=== PATIENT | female | born 1985 | race Caucasian/White ===

== ENCOUNTER 2017-05-13 11:44 | Emergency (ER) | payer MEDICAID ==
[2017-05-13 11:52] VITALS: BP 121/84
[2017-05-13 12:08] LABS: BILIRUBIN,URINE NEGATIVE (NEGATIVE); PH,URINE 6.5 PH (5.0-7.5)
[2017-05-13 12:10] LABS: HCG UR QUAL NEGATIVE; UA w/ MICROSCOPIC CHARGE YES
--- NOTE | 2017-05-13 12:11 | ED Physician Documentation ---
History of Present Illness - Stated complaint Stated Complaint: FEMALE - Chief complaint Chief Complaint: General - History obtained from History obtained from: Patient - History of Present Illness Timing: Other (31-year-old woman without history of UTIs presents 2 weeks foul- smelling urine and suprapubic pressure without dysuria or frequency. It is associated with mild right flank pain but no chills or fevers. No nausea. Slim possibility of .) Review of Systems Constitutional: denies: Fever, Chills Cardiac: reports: Reviewed and negative Respiratory: reports: Reviewed and negative PD PAST MEDICAL HISTORY - Past Medical History Past Medical History: No - Past Surgical History Past Surgical History: No - Present Medications Home Medications: Ambulatory Orders Medication Instructions Recorded Confirmed Sulfamethoxazole/Trimethoprim 1 each PO BID 5 Days tablet 05/13/17 [Sulfamethoxazole-Tmp Ds Tablet] - Allergies Allergies/Adverse Reactions: Allergies Allergy/AdvReac Type Severity Reaction Status Date / Time No Known Drug Allergies Allergy Verified 05/13/17 11:52 - Social History Does the pt smoke?: Yes Smoking Status: Current every day smoker Does the pt drink ETOH?: No Does the pt have substance abuse?: No - Immunizations Immunizations are current?: Yes Immunizations: TDAP >10years/unknown - POLST Patient has POLST: No PD ED PE NORMAL - Vitals Vital signs reviewed: Yes - General General: Alert and oriented X 3, No acute distress - Abdomen Abdomen: Soft, Non tender - Back Back: Other (Very mild right flank tenderness) - Neuro Neuro: Alert and oriented X 3, Normal speech - Psych Psych: Normal mood, Normal affect Results - Vitals Vitals: Vital Signs - 24 hr 05/13/17 11:49 Temperature 36.9 C Heart Rate 93 Respiratory 16 Rate Blood Pressure 121/84 H O2 Saturation 98 Oxygen O2 Source Room air - Labs Labs: Laboratory Tests 05/13/17 12:00 Urine Color YELLOW Urine Clarity CLEAR Urine pH 6.5 Ur Specific [place] <=1.005 Urine Protein NEGATIVE Urine Glucose (UA) NEGATIVE Urine Ketones NEGATIVE Urine Occult Blood SMALL H Urine Nitrite NEGATIVE Urine Bilirubin NEGATIVE Urine Urobilinogen 0.2 (NORMAL) Ur Leukocyte Esterase NEGATIVE Urine RBC 0-5 Urine WBC 0-3 Ur Squamous Epith Cells FEW Squamous Urine Bacteria Few Ur Microscopic Review INDICATED Urine Culture Comments NOT INDICATED Urine HCG, Qual NEGATIVE PD MEDICAL DECISION MAKING - ED course ED course: She has signs and symptoms very mild pyelonephritis, urinalysis positive for bacteriuria and blood, it is soft call but given her symptoms and exam findings it is consistent. Departure - Departure Disposition: 01 Home, Self Care Clinical Impression: Pyelonephritis Condition: Good Record reviewed to determine appropriate education?: Yes Instructions: Pyelonephritis Dc Prescriptions: Sulfamethoxazole/Trimethoprim [Sulfamethoxazole-Tmp Ds Tablet] 1 each PO BID 5 Days tablet Comments: Call your doctor to arrange a follow-up appointment, make the next available appointment. In the interim, return anytime if worse or if new symptoms develop. Your blood pressure was elevated today on check into the emergency department. This does not mean that you have hypertension, it is a common phenomenon to come to the emergency department and have elevated blood pressure. I recommend that you see your primary care physician within the week to have it rechecked when you are feeling better.
[2017-05-13 12:16] LABS: WBC,URINE 0-3 /HPF (0-5)
[2017-05-13 12:17] LABS: UR CULTURE IF IND NOT INDICATED
[2017-05-13] MEDS ORDERED: SULFAMETH/TRIMETH DS 800/160 MG TABLET PO STA (12:23)
[2017-05-13] MEDS ORDERED: SULFAMETH/TRIMETH DS 800/160 MG TABLET PO ONE (12:33)
== END 2017-05-13 12:33 | disposition home or self-care (01) ==
LOC: ED 11:44
DX: N12 Tubulo-interstitial nephritis, not specified as acute or chronic (principal); R82.71 Bacteriuria; R03.0 Elevated blood-pressure reading, without diagnosis of hypertension; F17.200 Nicotine dependence, unspecified, uncomplicated
CPT/HCPCS: 81001; 81025; 99283; A9270; 81003; 87086

== ENCOUNTER 2017-05-29 19:38 | Emergency (ER) | payer MEDICAID ==
[2017-05-29 19:44] VITALS: BP 131/89
--- NOTE | 2017-05-29 19:59 | ED Physician Documentation ---
History of Present Illness - Stated complaint Stated Complaint: TOOTH PX - Chief complaint Chief Complaint: Heent - History obtained from History obtained from: Patient, Family - History of Present Illness Timing: How many weeks ago (1) Pain level max: 8 Pain level now: 8 Improved by: nothing Worsened by: eating, drinking, smoking - Additonal information Additional information: Patient is a 31-year-old female who presents to the emergency department with left upper molar and left lower dental pain. This been ongoing for the past week. She has been taking clindamycin and Motrin without relief. Has an appointment with her dentist on . She has not had any fevers. No facial swelling. She is concerned the infection is worsening. Review of Systems Constitutional: denies: Fever, Chills Respiratory: denies: Cough GI: denies: Vomiting : denies: Now EGA Skin: denies: Rash PD PAST MEDICAL HISTORY - Past Medical History Past Medical History: No - Past Surgical History Past Surgical History: No - Present Medications Home Medications: Ambulatory Orders Medication Instructions Recorded Confirmed Cephalexin [Keflex] 500 mg PO Q6H #40 capsule 05/29/17 Clindamycin HCl [Clindamycin 300MG 1 tab PO DAILY 05/29/17 05/29/17 CAP] Hydrocodone/Acetaminophen 1 - 2 each PO Q6H PRN #14 tablet 05/29/17 [Hydrocodon-Acetaminophen 5-325] - Allergies Allergies/Adverse Reactions: Allergies Allergy/AdvReac Type Severity Reaction Status Date / Time No Known Drug Allergies Allergy Verified 05/29/17 19:44 - Social History Does the pt smoke?: Yes Smoking Status: Current every day smoker Does the pt drink ETOH?: No Does the pt have substance abuse?: No - Immunizations Immunizations are current?: Yes Immunizations: TDAP >10years/unknown - POLST Patient has POLST: No PD ED PE NORMAL - Vitals Vital signs reviewed: Yes - General General: Alert and oriented X 3, No acute distress, Well developed/nourished - HEENT HEENT: Moist mucous membranes - Neck Neck: Supple, no meningeal sign, No adenopathy - Cardiac Cardiac: RRR, No murmur - Respiratory Respiratory: No respiratory distress, Clear bilaterally - Derm Derm: Warm and dry - Neuro Neuro: Alert and oriented X 3 PD ED PE EXPANDED - HEENT HEENT Visual: 1 - tenderness (diffuse dental decay, multiple missing teeth. no gingival swelling or abscess.) 2 - tenderness (diffuse dental decay, multiple missing teeth. no gingival swelling or abscess.) Results - Vitals Vitals: Vital Signs - 24 hr 05/29/17 19:39 Temperature 36.2 C L Heart Rate 100 Respiratory 18 Rate Blood Pressure 131/89 H O2 Saturation 100 Oxygen O2 Source Room air PD MEDICAL DECISION MAKING - ED course Complexity details: reviewed old records, considered differential, d/w patient, d/w family ED course: Patient is a 31-year-old female who presents to the emergency department with diffuse dental decay on the left upper and lower jaw. Multiple fractured teeth that were packed with cavit. Will place her on antibiotics and pain medication for home. She does not have any drainable abscess. No facial cellulitis. No trismus. No Herman's angina. Patient counseled regarding signs and symptoms for which I believe and urgent re-evaluation would be necessary. Patient with good understanding of and agreement to plan and is comfortable going home at this time This document was made in part using voice recognition software. While efforts are made to proofread this document, sound alike and grammatical errors may occur. Departure - Departure Disposition: 01 Home, Self Care Clinical Impression: Dental caries Condition: Good Instructions: ED Tooth Pain, ED Cavity Dental Follow-Up: your,dentist as soon as possible [Other] Prescriptions: Cephalexin [Keflex] 500 mg PO Q6H #40 capsule Hydrocodone/Acetaminophen [Hydrocodon-Acetaminophen 5-325] 1 - 2 each PO Q6H PRN #14 tablet PRN Reason: pain Comments: Return if you worsen. Take all antibiotics until gone. Stop the clindamycin. Do not drink alcohol or drive while on narcotic pain medicine. Note that many narcotic pain relievers also contain tylenol/acetaminophen. Please ensure that your total dose of acetaminophen from all sources does not exceed 3 grams (3000mg) per day. You may constipated on this medication, take a stool softener such as "Colace" twice a day while you are on it. Also recommend a [id number]-[id number]-bloxawd laxative such as senna or MiraLAX any day that you do not have a bowel movement. If you received narcotic pain medication in the emergency department, do not drive or operate machinery for the next 24 hours. Discharge Date/Time: 05/29/17 20:01
== END 2017-05-29 20:01 | disposition home or self-care (01) ==
LOC: ED 19:38
DX: K02.9 Dental caries, unspecified (principal); F17.200 Nicotine dependence, unspecified, uncomplicated
CPT/HCPCS: 99283

== ENCOUNTER 2020-11-29 23:13 | Emergency (ER) | payer MEDICAID ==
[2020-11-29] MEDS ORDERED: ACETAMINOPHEN 325 MG TABLET PO STA (23:45)
[2020-11-30 00:07] LABS: BILIRUBIN,URINE NEGATIVE (NEGATIVE); GLUCOSE, URINE (UA) NEGATIVE (NEGATIVE); KETONES,URINE (UA) NEGATIVE (NEGATIVE); LEUKOCYTE ESTERASE, URINE NEGATIVE (NEGATIVE); NITRITE,URINE NEGATIVE (NEGATIVE); OCCULT BLOOD,URINE MODERATE (NEGATIVE); PROTEIN,URINE NEGATIVE (NEGATIVE); UROBILINOGEN,URINE 0.2 (NORMAL) E.U./dL (NORMAL)
[2020-11-30 00:09] LABS: CLARITY,URINE CLEAR (CLEAR); HCG UR QUAL POSITIVE
[2020-11-30 00:14] LABS: RBC,URINE 0-5 /HPF (0-5); WBC,URINE 0-3 /HPF (0-5)
[2020-11-30 00:15] LABS: BACTERIA,URINE Rare /HPF (None Seen); CRYSTALS,URINE 26-50 Ca Oxalate /LPF; SQUAMOUS EPITHELIAL CELL,UR RARE Squamous (<= Few)
--- NOTE | 2020-11-30 00:29 | ED Physician Documentation ---
History of Present Illness - Stated complaint Stated Complaint: HEAD PX, EAR ISSUES - Chief complaint Chief Complaint: Neuro - History obtained from History obtained from: Patient - Additonal information Additional information: 35-year-old woman, G6, P4, currently with LMP sometime in May, without care up to this point, presents with multiple complaints. Patient states that she had vaginal spotting 2 days ago. She also had 3 episodes of intermittent severe headache that she says were generalized, sharp, resolved on their own, were associated with severe anxiety. She does take buspirone and methadone for anxiety, depression, and to treat prior substance abuse issues. Patient denies alcohol, substance use. She [facility] for evaluation for possible . Finally, the patient is complaining of chronic buzzing in the ears, worse on the left side. She inserts Q tips in her ears regularly. Review of Systems Ten Systems: 10 systems reviewed and negative Constitutional: denies: Fever, Chills Eyes: reports: Other (double vision) Cardiac: denies: Chest pain / pressure Respiratory: denies: Dyspnea GI: reports: Nausea : reports: Vaginal bleeding Neurologic: reports: Headache Psychiatric: reports: Depressed, Anxiety, Other (denies SI/HI/AVH. feels safe at home) PD PAST MEDICAL HISTORY - Past Medical History Past Medical History: Yes Psych: Depression - Past Surgical History Past Surgical History: No - Present Medications Home Medications: Ambulatory Orders Medication Instructions Recorded Confirmed Escitalopram [Lexapro] 20 mg PO DAILY 11/29/20 11/29/20 Mirtazapine [Remeron] 15 mg PO DAILY 11/29/20 11/29/20 - Allergies Allergies/Adverse Reactions: Allergies Allergy/AdvReac Type Severity Reaction Status Date / Time No Known Drug Allergies Allergy Verified 05/29/17 19:44 - Social History Does the pt smoke?: Yes Smoking Status: Current every day smoker Does the pt drink ETOH?: No Does the pt have substance abuse?: No - Immunizations Immunizations are current?: Yes Immunizations: TDAP >10years/unknown - POLST Patient has POLST: No PD ED PE NORMAL - Vitals Vital signs reviewed: Yes - General General: Alert and oriented X 3, Well developed/nourished, Other (tearful) - HEENT HEENT: Atraumatic, PERRL, EOMI, Other (BL TMs with scar tissue. L TM partial rupture) - Neck Neck: Supple, no meningeal sign - Cardiac Cardiac: RRR - Respiratory Respiratory: No respiratory distress, Clear bilaterally - Abdomen Abdomen: Non tender, Non distended, Other (gravid abdomen) - Derm Derm: Normal color, Warm and dry - Extremities Extremities: No deformity, No edema - Neuro Neuro: Alert and oriented X 3, measurement technician 2-12 intact, No motor deficit, No sensory deficit, Normal speech - Psych Psych: Other (teaful affect, anxious mood) Results - Vitals Vitals: Vital Signs - 24 hr 11/29/20 11/30/20 11/30/20 23:15 00:58 01:11 Temperature 36.6 C Heart Rate 105 H 94 82 Respiratory 16 13 15 Rate Blood Pressure 125/84 H 133/77 H O2 Saturation 98 98 96 Oxygen O2 Source Room air - Labs Labs: Laboratory Tests 11/29/20 11/29/20 11/29/20 23:47 23:47 23:47 WBC RBC Hgb Hct MCV MCH MCHC RDW Plt Count MPV Neut # (Auto) Lymph # (Auto) Sully # (Auto) Eos # (Auto) Baso # (Auto) Absolute Nucleated RBC Nucleated RBC % Sodium Potassium Chloride Carbon Dioxide Anion Gap BUN Creatinine Estimated GFR (MDRD) Glucose Calcium Total Bilirubin AST ALT Alkaline Phosphatase Total Protein Albumin Globulin Albumin/Globulin Ratio Lipase TSH HCG, Quant Urine Color YELLOW Urine Clarity CLEAR Urine pH 6.0 Ur Specific [place] >=1.030 H Urine Protein NEGATIVE Urine Glucose (UA) NEGATIVE Urine Ketones NEGATIVE Urine Occult Blood MODERATE H Urine Nitrite NEGATIVE Urine Bilirubin NEGATIVE Urine Urobilinogen 0.2 (NORMAL) Ur Leukocyte Esterase NEGATIVE Urine RBC 0-5 Urine WBC 0-3 Ur Squamous Epith Cells RARE Squamous Urine Crystals 26-50 Ca Oxalate Urine Bacteria Rare Urine Culture Comments NOT INDICATED Urine HCG, Qual POSITIVE Urine Opiates Screen NEGATIVE Ur Oxycodone Screen NEGATIVE Urine Methadone Screen POSITIVE H Ur Propoxyphene Screen NEGATIVE Ur Barbiturates Screen NEGATIVE Ur Tricyclics Screen NEGATIVE Ur Phencyclidine Scrn NEGATIVE Ur Amphetamine Screen POSITIVE H U Methamphetamines Scrn POSITIVE H U Benzodiazepines Scrn POSITIVE H Urine Cocaine Screen NEGATIVE U Cannabinoids Screen NEGATIVE Ethyl Alcohol Blood Type Antibody Screen 11/30/20 11/30/20 11/30/20 00:40 00:40 00:40 WBC 8.5 RBC 3.74 L Hgb 11.1 L Hct 32.6 L MCV 87.2 MCH 29.7 MCHC 34.0 RDW 12.8 Plt Count 245 MPV 10.0 Neut # (Auto) 5.0 Lymph # (Auto) 2.5 Sully # (Auto) 0.6 Eos # (Auto) 0.4 Baso # (Auto) 0.1 Absolute Nucleated RBC 0.00 Nucleated RBC % 0.0 Sodium 135 Potassium 3.7 Chloride 102 Carbon Dioxide 23 Anion Gap 10.0 BUN 13 Creatinine 0.6 Estimated GFR (MDRD) 113 Glucose 122 H Calcium 9.2 Total Bilirubin 0.5 AST 20 ALT 22 Alkaline Phosphatase 49 Total Protein 6.6 L Albumin 3.8 Globulin 2.8 Albumin/Globulin Ratio 1.4 Lipase 22 TSH 0.77 HCG, Quant Urine Color Urine Clarity Urine pH Ur Specific [place] Urine Protein Urine Glucose (UA) Urine Ketones Urine Occult Blood Urine Nitrite Urine Bilirubin Urine Urobilinogen Ur Leukocyte Esterase Urine RBC Urine WBC Ur Squamous Epith Cells Urine Crystals Urine Bacteria Urine Culture Comments Urine HCG, Qual Urine Opiates Screen Ur Oxycodone Screen Urine Methadone Screen Ur Propoxyphene Screen Ur Barbiturates Screen Ur Tricyclics Screen Ur Phencyclidine Scrn Ur Amphetamine Screen U Methamphetamines Scrn U Benzodiazepines Scrn Urine Cocaine Screen U Cannabinoids Screen Ethyl Alcohol < 5.0 Blood Type Antibody Screen 11/30/20 11/30/20 00:40 00:40 WBC RBC Hgb Hct MCV MCH MCHC RDW Plt Count MPV Neut # (Auto) Lymph # (Auto) [place] # (Auto) Eos # (Auto) Baso # (Auto) Absolute Nucleated RBC Nucleated RBC % Sodium Potassium Chloride Carbon Dioxide Anion Gap BUN Creatinine Estimated GFR (MDRD) Glucose Calcium Total Bilirubin AST ALT Alkaline Phosphatase Total Protein Albumin Globulin Albumin/Globulin Ratio Lipase TSH HCG, Quant 87268.00 Urine Color Urine Clarity Urine pH Ur Specific [place] Urine Protein Urine Glucose (UA) Urine Ketones Urine Occult Blood Urine Nitrite Urine Bilirubin Urine Urobilinogen Ur Leukocyte Esterase Urine RBC Urine WBC Ur Squamous Epith Cells Urine Crystals Urine Bacteria Urine Culture Comments Urine HCG, Qual Urine Opiates Screen Ur Oxycodone Screen Urine Methadone Screen Ur Propoxyphene Screen Ur Barbiturates Screen Ur Tricyclics Screen Ur Phencyclidine Scrn Ur Amphetamine Screen U Methamphetamines Scrn U Benzodiazepines Scrn Urine Cocaine Screen U Cannabinoids Screen Ethyl Alcohol Blood Type O POSITIVE Antibody Screen NEGATIVE PD MEDICAL DECISION MAKING - ED course ED course: 35-year-old woman presents with multiple medical complaints, the most concerning of which is that she is likely five months with no care, reporting DANIELS, nausea, double vision, and vaginal spotting yesterday. Will obtain lab work and ultrasound to evaluate further. Patient eloped prior to my discussing her results. I called her and Let her know her blood type, her results of her ultrasound, and the fact that she is anemic. Encouraged her to follow[facility]up with [facility] this [facility] and to return here as a safe place if she would like help with addiction treatment. She states she is seeking counseling to stop using meth. return precautions given. Departure - Departure Disposition: ED [place] Clinical Impression: Threatened miscarriage, Headache, Methamphetamine abuse Discharge Date/Time: 11/30/20 02:10
[2020-11-30 00:39] LABS: MUDS CUTOFF CONCENTRATIONS CUTOFF CONC BELOW:
[2020-11-30 00:46] LABS: BASOPHILS # (AUTO) 0.1 10^3/uL (0.0-0.1); BASOPHILS % (AUTO) 0.7 %; EOSINOPHILS # (AUTO) 0.4 10^3/uL (0.0-0.7); EOSINOPHILS % (AUTO) 4.3 %; HCT - HEMATOCRIT 32.6 % (37.0-47.0); HGB - HEMOGLOBIN 11.1 g/dL (12.0-16.0); LYMPHOCYTES # (AUTO) 2.5 10^3/uL (1.5-3.5); MEAN CORPUSCULAR HEMOGLOBIN 29.7 pg (27.0-31.0); MEAN CORPUSCULAR VOLUME 87.2 fL (81.0-99.0); MONOCYTES # (AUTO) 0.6 10^3/uL (0.0-1.0); MONOCYTES % (AUTO) 7.4 %; NEUTROPHILS % (AUTO) 58.4 %; PLT - PLATELET COUNT 245 10^3/uL (130-450); RED BLOOD COUNT 3.74 10^6/uL (4.20-5.40); RED CELL DISTRIBUTION WIDTH 12.8 % (12.0-15.0); WHITE BLOOD COUNT 8.5 x10^3/uL (4.8-10.8)
[2020-11-30 00:51] LABS: AMPHETAMINE SCREEN,URINE POSITIVE (NEGATIVE); BARBITURATE SCREEN,UR NEGATIVE (NEGATIVE); BENZODIAZEPINES SCREEN, URINE POSITIVE (NEGATIVE); COCAINE SCREEN URINE NEGATIVE (NEGATIVE); METHADONE SCREEN, URINE POSITIVE (NEGATIVE); METHAMPHETAMINES SCREEN, URINE POSITIVE (NEGATIVE); OPIATE SCREEN, URINE NEGATIVE (NEGATIVE); OXYCODONE SCREEN, URINE NEGATIVE (NEGATIVE); PROPOXYPHENE SCREEN, URINE NEGATIVE (NEGATIVE); THC CANNABINOID SCREEN, URINE NEGATIVE (NEGATIVE); TRICYCLIC ANTIDEPRESSANT,URINE NEGATIVE (NEGATIVE)
[2020-11-30 00:59] LABS: ALBUMIN 3.8 g/dL (3.2-5.5); ALBUMIN/GLOBULIN RATIO 1.4 (1.0-2.2); ALKALINE PHOSPHATASE 49 IU/L (42-121); ALT ALANINE AMINOTRANSFERASE 22 IU/L (10-60); AST ASPARTATE AMINOTRANSFERASE 20 IU/L (10-42); BILIRUBIN,TOTAL 0.5 mg/dL (0.2-1.0); BUN - BLOOD UREA NITROGEN 13 mg/dL (6-20); CALCIUM 9.2 mg/dL (8.5-10.3); CARBON DIOXIDE - CO2 23 mmol/L (21-32); CHLORIDE 102 mmol/L (101-111); CREATININE 0.6 mg/dL (0.4-1.0); ETOH - ETHANOL < 5.0 mg/dL; GFR - MDRD 113 (>89); GLUCOSE 122 mg/dL (70-100); LIPASE 22 U/L (22-51); POTASSIUM 3.7 mmol/L (3.5-5.0); SODIUM 135 mmol/L (135-145); TOTAL PROTEIN 6.6 g/dL (6.7-8.2)
[2020-11-30 01:00] VITALS: BP 133/77
--- NOTE | 2020-11-30 08:44 | Ultrasound Report ---
PROCEDURE: OB First Trimester INDICATIONS: LMP MAY, NO CARE,SPOTTING OUTSIDE/PRIOR DATING DATA: Last menstrual period (LMP): Not available. LMP-based estimated date of delivery (CORRIE): Not available. First dating scan (date and location): This study, 11/30/2020. Estimated date of delivery (CORRIE) from first dating scan: 06/14/2021, +/- 5 days.. The below data below was generated using the current CORRIE of 06/14/2021. TECHNIQUE: Real-time scanning was performed of the fetus and maternal pelvic organs, with image documentation. COMPARISON: None. FINDINGS: There is a single living intrauterine gestation with heart rate 144 bpm, and a crown-rump length of 5.3 cm, which correlates with a gestational age of 12 weeks 0 days, +/- 5 days. 2 small foci of subchorionic hemorrhage are identified, the first on the left measuring 2.1 x 0.8 x 1 .6 cm and the second on the right measuring 1.2 x 0.5 x 0.6 cm. Measurement variability in dating: +/- 4 weeks by LMP, +/- 7 days by mean sac diameter (use before 6 weeks gestation if crown-rump length not able to be measured), +/- 5 days by crown-rump length (6-12 weeks gestation). Maternal organs: Ovaries are normal considering gestational status with what appears to be a small c orpus luteum cyst at the right ovary.. IMPRESSION: Single living intrauterine gestation with current estimated gestational age from crown-rump length of 12 weeks 0 days, with delivery date projected to be centered on 06/14/2021, +/- 5 days. Note is made of 2 small subchorionic hemorrhage sites, one on the left and one on the right, producing no signifi cant mass effect. Follow-up anatomic survey at 20 weeks gestation is recommended. Reviewed by: Avery Izaguirre MD on 11/30/2020 8:43 AM PDT Approved by: Avery Izaguirre MD on 11/30/2020 8:43 AM PDT Station ID: [id number]
== END 2020-11-30 02:10 | disposition left against medical advice (07) ==
LOC: ED 23:13
DX: O20.0 Threatened abortion (principal); O41.8X10 Other specified disorders of amniotic fluid and membranes, first trimester, not applicable or unspecified; O99.321 Drug use complicating pregnancy, first trimester; F15.10 Other stimulant abuse, uncomplicated; O99.891 Other specified diseases and conditions complicating pregnancy; R51.9 Headache, unspecified; O99.011 Anemia complicating pregnancy, first trimester; D64.9 Anemia, unspecified; O09.521 Supervision of elderly multigravida, first trimester; O99.331 Smoking (tobacco) complicating pregnancy, first trimester; F17.200 Nicotine dependence, unspecified, uncomplicated; Z3A.12 12 weeks gestation of pregnancy; Z53.29 Procedure and treatment not carried out because of patient's decision for other reasons
CPT/HCPCS: 36415; 76801; 80053; 80306; 80320; 81001; 81025; 83690; 84443; 84702; 85025; 86850; 86900; 86901; 99284; A9270; 87086